=== PATIENT | female | born 1960 | race Caucasian/White ===

== ENCOUNTER 2024-03-24 19:45 | Emergency (ER) | payer MEDICAID ==
[~2024-03-24] VITALS: Ht 175.3 cm; Wt 101.4 kg
[2024-03-24] MEDS ORDERED: CLIN300C71 PO (21:03)
[2024-03-24] MEDS: CefTRIAXone 1000mg IM Kit (w/lidocaine diluent) IM ONE (21:11)
[2024-03-24 21:17] VITALS: BP 138/90; PULSE 70; RESP 17; TEMP 97; O2SAT 96
== END 2024-03-24 21:20 | disposition home or self-care (01) ==
LOC: ER 19:46
DX: L03.211 Cellulitis of face (principal); R68.84 Jaw pain; Z88.0 Allergy status to penicillin; Z88.2 Allergy status to sulfonamides
CPT/HCPCS: 70486; 96372; 99285; J0696

== ENCOUNTER 2024-09-28 12:02 | Emergency (ER) | payer MEDICAID ==
[~2024-09-28] VITALS: Ht 175.3 cm; Wt 110.2 kg
[2024-09-28 12:35] VITALS: BP 193/105; PULSE 60; RESP 18; TEMP 97.9; O2SAT 92
[2024-09-28] MEDS ORDERED: ALBU18HF2 INH (15:14)
[2024-09-28] MEDS ORDERED: CEFU500T66 PO (15:14)
[2024-09-28] MEDS ORDERED: BENZ-38 PO (15:14)
== END 2024-09-28 15:25 | disposition home or self-care (01) ==
LOC: ER 12:03
DX: J40 Bronchitis, not specified as acute or chronic (principal); Z88.0 Allergy status to penicillin; Z88.2 Allergy status to sulfonamides; Z88.1 Allergy status to other antibiotic agents
CPT/HCPCS: 71045; 99283